=== PATIENT | male | born 1985 | race Caucasian/White ===

== ENCOUNTER 2025-03-20 14:01 | Emergency (ER) | payer OTHER, SELFPAY ==
[2025-03-20 14:02] VITALS: BMI 45.9
[2025-03-20 14:09] VITALS: BP 160/100
[2025-03-20 14:21] LABS: Hematocrit 44.6 % (39.0-52.0); Hemoglobin 15.8 g/dL (13.0-18.0); Mean Corp Hgb Conc. 35.4 g/dL (33.0-37.0); Mean Corpuscular Volume 85.6 fL (80.0-94.0); Nucleated Red Blood Cells % 0 % (-); Platelet Count 286 10^3/uL (130-400); Red Cell Dist. Width 12.0 % (11.5-14.5)
[2025-03-20 14:32] LABS: INR 0.95; PT 13.2 Sec (11.4-14.6)
[2025-03-20 14:39] LABS: ALT (SGPT) 68 U/L (0-50); AST (SGOT) 40 U/L (17-59); Albumin 4.6 g/dl (3.5-5.0); Alkaline Phosphatase 56 U/L (38-126); Blood Urea Nitrogen 12 mg/dl (9-20); Calcium 9.3 mg/dl (8.4-10.2); Carbon Dioxide 28 mmol/L (22-30); Chloride 103 mmol/L (98-107); Glucose 96 mg/dl (70-99); Potassium 4.5 mmol/L (3.5-5.1); Sodium 139 mmol/L (135-145); Total Protein 7.1 g/dl (6.3-8.2); eGFR > 60.00
[2025-03-20 14:48] LABS: Troponin I < 0.012 ng/ml
--- NOTE | 2025-03-20 17:54 | ED.GENMED ---
History of Present Illness
General
Chief Complaint: Chest Pain
Source: patient
Exam Limitations: none
Time Seen by Provider: 03/20/25 17:51
History of Present Illness
History of Present Illness:
39yoM with a history of coronary artery disease s/p PCI in 2021 and hyperlipidemia presenting for evaluation of chest pain x 2 days. Patient reports a constant dull pain in the center of his chest. He is also having intermittent poking pains in
the chest that seem to come and go randomly. Symptoms feel different than his prior heart attack. Nothing seems to make the pain better or worse. Specifically, he denies any pleuritic or exertional pain. He is otherwise asymptomatic and denies
any shortness of breath, nausea, dizziness, diaphoresis, leg swelling, calf pain. Patient's access clinician is Dr. Castaneda.
Past History
Past History
ED Past Medical History: None
ED Past Surgical History: None
Patient has exhibited threatening behavior?: No
Social History
Tobacco: Non-smoker
Alcohol: Occasional
Drug: None
Personal:
Living: with family
Employment: Employed
Family History
Family History: Early CAD (Grandfather age 36 from [place]) and Other (hyperlipidemia)
Phy Exam
General Physical Exam
General Presentation: well appearing and no apparent distress
General Skin: warm and dry
General Habitus: normal
General Mental: alert
ENT Exam
ENT Exam: normocephalic
Cardiovascular Exam
Cardiovascular Exam: regular rate/rhythm, no edema and no murmur
Pulmonary Exam
Pulmonary Exam: lungs clear, no respiratory distress, no rales, no crackles, no rhonchi and no wheezing
Neurological Exam
Neurological Exam: alert
Shelia Coma Scale
Eye Opening: Spontaneous
Verbal Response: Oriented
Motor Response: Obeys Commands
GCS Total Score: 15
Skin Exam
Skin Exam: normal color and warm/dry
Psychiatric Exam
Psychiatric Exam: normal mood/affect
Scores
Heart Score for Chest Pain Patients
STEMI patient?: No
History: Slightly or Non-Suspicious
ECG: Nonspecific Repolarization
Age: </= 45 years
Risk Factors: >/= 3 Risk Factors or History of CAD
Troponin: </= Normal Limit
Heart Score for Chest Pain Patients: 3
Heart Score Risk: 2.5% MACE over next 6 weeks
Course
Orders/Labs/Results
Orders:
Orders
03/20/25 14:03
ECG [Electrocardiogram (*1)] Urgent
Reason for Study: Chest Pain
EKG- Treatment ONCE
03/20/25 14:15
Complete Blood Count/With Diff Urgent
Comprehensive Metabolic Panel Urgent
Prothrombin Time Urgent
Troponin I Urgent
03/20/25 17:56
Electrocardiogram (*1) Urgent
Reason for Study: Chest Pain
Cardiac Monitoring- Treatment ONCE
EKG- Treatment ONCE
03/20/25 18:06
Troponin I Urgent
03/20/25 18:17
CR Chest - 2 Views Urgent
Comment:
Reason For Exam: CP
Abnormal Lab Results
03/20/25
14:15
Absolute Monos (auto) 0.8 H 10^3/uL
(0.1-0.6)
Monocytes % 11.1 H %
(1.7-9.3)
ALT 68 H U/L
(0-50)
03/20/25 14:15
03/20/25 14:15
Vital Signs
Initial and Last Documented VS:
Initial Vital Signs
Temp Pulse Resp BP Pulse Ox
98.9 F 65 18 160/100 98
03/20/25 14:09 03/20/25 14:09 03/20/25 14:09 03/20/25 14:09 03/20/25 14:09
Last Documented Vital Signs
Temp Pulse Resp BP Pulse Ox
98.9 F 59 16 160/100 99
03/20/25 14:09 03/20/25 18:14 03/20/25 18:14 03/20/25 14:09 03/20/25 18:14
MDM/Problems Addressed
Differential Diagnosis Includes:
39yoM here with chest pain x 2 days. Hx of [place]. Otherwise asymptomatic. He is hypertensive with otherwise stable vitals. He is well appearing in no distress and exam is reassuring. Differential diagnosis includes but is not limited to: ACS,
pericarditis, esophagitis, musculoskeletal, doubt PE given normal vitals and lack of pleuritic pain
Initial ED plan: Workup initiated in triage. EKG shows normal sinus rhythm with nonspecific T wave changes in inferior leads which appears similar to prior EKG in 2021. Troponin within normal limits. Will check delta troponin/EKG and chest x-ray.
*Pulse Oximetry
SaO2: 98
Oxygen Mode of Delivery: Room air
Patient hypoxic: no (98%)
*EKG
Interpreted by ED Provider?: Yes
EKG Intrepretation Date: 03/20/25
Heart Rate: 64
Rate: normal
Rhythm: sinus
Benson: normal axis
Interval: normal interval
QRS Pattern: normal QRS
Ischemia: T-wave inversion (nonspecific T wave changes in III and aVF)
*Critical Care Note
Total Time (30-74mins, 75-104mins- exclusive of procedures): Not Applicable
Update Note
Update Note:
Repeat EKG and troponin performed about 4 hours after initial unchanged. Chest x-ray clear. No indication for hospitalization. Will discharge with chest pain hotline follow-up. ED return precautions reviewed. Patient in agreement with plan and
was discharged in stable condition.
ED Attending Note
-
Portions of this chart may have been created with voice recognition software.� Occasional wrong word or��sound alike� substitutions may have occurred due to the inherent limitations of voice recognition software.
Discharge Plan
Departure
Patient Disposition: Home (Routine Discharge)
Date of Disposition: 03/20/25
Time of Disposition: 20:11
Patient with high blood pressure during this ER visit?: Yes
Discharge Problem:
Chest pain
Instructions: Chest Pain DCA Follow Up
Prescriptions:
No Action
atorvastatin 80 mg Tablet
80 mg PO QPM Qty: 30 11RF
aspirin 81 mg Tablet,Delayed Release (Dr/Ec)
81 mg PO DAILY Qty: 30 0RF
metoprolol succinate 25 mg Tablet Extended Release 24 Hr
25 mg PO DAILY Qty: 30 11RF
Brilinta 90 mg Tablet
90 mg PO BID Qty: 60 11RF
Referrals:
Gaby Manuel MD [Family Provider, Family Practice]
Activity Restrictions/Additional Instructions:
Please follow-up closely with your access clinician. Return to the ER immediately with any new or worsening symptoms.
Interventions
Interventions:
*Risk Screen - Suicide Last Done: 03/20/25 14:09
*General Assessment Last Done: 03/20/25 14:09
*Neglect/Abuse Screening Last Done: 03/20/25 14:09
*ED- Fall Risk Assessment Last Done: 03/20/25 14:09
*ED COVID-19 Vaccine History Last Done: 03/20/25 14:09
*Nursing Disposition Last Done: 03/20/25 20:17
ED- Cardiac Assessment Last Done: 03/20/25 18:12
Discharge Date and Time
Discharge Date/Time: 03/20/25 20:17
Print Language: PERSIAN
[2025-03-20 18:44] LABS: Troponin I < 0.012 ng/ml
== END 2025-03-20 20:17 | disposition home or self-care (01) ==
LOC: EMR 14:01
PROVIDERS: Emergency Medicine; Physician Assistant; EMERGENCY PHYSICIAN Emergency Medicine; FAMILY PHYSICIAN Family Medicine
DX: R07.89 Other chest pain (principal); E78.00 Pure hypercholesterolemia, unspecified; I25.10 Atherosclerotic heart disease of native coronary artery without angina pectoris; I25.2 Old myocardial infarction; Z82.49 Family history of ischemic heart disease and other diseases of the circulatory system; Z83.438 Family history of other disorder of lipoprotein metabolism and other lipidemia; Z83.49 Family history of other endocrine, nutritional and metabolic diseases; Z95.5 Presence of coronary angioplasty implant and graft
CPT/HCPCS: 99283; 71046; 80053; 84484; 85025; 85610; 93005

== ENCOUNTER → 2025-06-10 08:33 | Outpatient (REF) | payer OTHER, SELFPAY | LOC: HWRCS 08:33 | PROVIDERS: ATTENDING PHYSICIAN Physician Assistant Medical; FAMILY PHYSICIAN Family Medicine | DX: I25.9 Chronic ischemic heart disease, unspecified (principal); I25.10 Atherosclerotic heart disease of native coronary artery without angina pectoris | CPT/HCPCS: 78452; 93017; A9500 ==